=== PATIENT | male | born 1990 | race African-American/Black ===

== ENCOUNTER 2021-12-11 16:09 | Inpatient (IN) | payer OTHER ==
[2021-12-11] MEDS ORDERED: MAGNESIUM CITRATE 300 ML BOTTLE PO PRN (20:57)
[2021-12-11] MEDS ORDERED: BISMUTH SUBSALICYLATE 524 MG/30 ML PO PRN (20:57)
[2021-12-11] MEDS ORDERED: MAGNESIUM HYDROX 2400MG/30ML ORAL SUSPENSION 30 ML CUP PO PRN (20:57)
[2021-12-11] MEDS ORDERED: DICYCLOMINE HCL 10 MG CAPSULE PO PRN (20:57)
[2021-12-11] MEDS ORDERED: ACETAMINOPHEN 325 MG TABLET (FP) PO PRN ×2 (20:57)
[2021-12-11] MEDS ORDERED: P-EPHED 60MG/TRIPROLIDI 2.5MG TABLET PO PRN (20:57)
[2021-12-11] MEDS ORDERED: BENZOCAINE/MENTHOL (CHLORASEPTIC ) LOZENGE MM PRN (20:57)
[2021-12-11] MEDS ORDERED: IBUPROFEN 400 MG TABLET (FP) PO PRN (20:57)
[2021-12-11] MEDS ORDERED: NICOTINE POLACRILEX 2 MG GUM BUC PRN (20:57)
[2021-12-11] MEDS ORDERED: guaiFENesin 200 MG/10 ML 10 ML UNIT-DOSE CUPS PO PRN (20:57)
[2021-12-11] MEDS ORDERED: MAG HYDROX/AL HYDROX/SIMETH 30 ML UNIT-DOSE CUP PO PRN (20:57)
[2021-12-11] MEDS ORDERED: chlordiazePOXIDE HCL 25 MG CAPSULE PO PRN (20:57)
[2021-12-11] MEDS ORDERED: ONDANSETRON *ODT* 4 MG TABLET SL PRN (20:57)
[2021-12-11] MEDS ORDERED: IBUPROFEN 600 MG TABLET (FP) PO PRN (20:57)
[2021-12-11] MEDS ORDERED: LOPERAMIDE HCL 2 MG CAPSULE PO PRN (20:57)
[2021-12-11 21:24] VITALS: BMI 29.5
[2021-12-12] MEDS: chlordiazePOXIDE HCL 25 MG CAPSULE PO SCH ×5 (02:39→22:19)
[2021-12-12] MEDS ORDERED: chlordiazePOXIDE HCL 25 MG CAPSULE ONE ×2 (02:42→06:28)
[2021-12-12] MEDS: MELATONIN 5 MG TABLETS PO SCH ×2 (03:50→22:19)
[2021-12-12] MEDS: THIAMINE HCL 100 MG TABLET (FP) PO SCH ×2 (03:51→22:19)
[2021-12-12] MEDS: METHOCARBAMOL 500 MG TABLET PO PRN ×2 (10:23→18:29)
[2021-12-12] MEDS: PRENATAL VITAMINS W/ FOLIC ACID TABLET (FP) PO SCH (10:23)
[2021-12-12] MEDS: NICOTINE 14 MG/24 HOURS TOPICAL PATCH TD SCH (10:23)
[2021-12-12 10:27] LABS: HEMATOCRIT 42.3 % (35.4-49); HEMOGLOBIN 13.8 GM/dL (11.7-16.9); MCH 31.3 pg (25.7-33.7); MCHC 32.6 g/dl (32.0-35.9); MEAN CELL VOLUME 95.9 fl (80-96); MEAN PLT VOLUME 8.6 fl (7.5-11.1); PLATELET COUNT 242 10^3/uL (134-434); RBC 4.41 M/mm3 (4.00-5.60); RDW 13.2 % (11.9-15.9); WHITE BLOOD COUNT 6.3 K/mm3 (4.0-10.0)
[2021-12-12 10:52] LABS: ALBUMIN 3.3 g/dl (3.4-5.0); BLOOD UREA NITROGEN 4.2 mg/dL (7-18); CALCIUM 8.6 mg/dL (8.5-10.1)
[2021-12-12 10:55] LABS: CREATININE 0.6 mg/dL (0.55-1.3)
[2021-12-12 10:57] LABS: BILIRUBIN,TOTAL 0.5 mg/dL (0.2-1); TOT PROT 6.6 g/dl (6.4-8.2)
[2021-12-13] MEDS: chlordiazePOXIDE HCL 25 MG CAPSULE PO SCH ×2 (05:45→12:07)
[2021-12-13 08:45] VITALS: RESP 18
[2021-12-13 09:14] VITALS: BP 133/75; PULSE 63; TEMP 97.5
[2021-12-13] MEDS: NICOTINE 14 MG/24 HOURS TOPICAL PATCH TD SCH (12:06)
[2021-12-13] MEDS: PRENATAL VITAMINS W/ FOLIC ACID TABLET (FP) PO SCH (12:07)
[2021-12-14] MEDS ORDERED: chlordiazePOXIDE HCL 10 MG CAPSULE PO PRN
[2021-12-14] MEDS ORDERED: chlordiazePOXIDE HCL 10 MG CAPSULE PO SCH (05:00)
[2021-12-15] MEDS ORDERED: chlordiazePOXIDE HCL 10 MG CAPSULE PO SCH (05:00)
[2021-12-16] MEDS ORDERED: chlordiazePOXIDE HCL 10 MG CAPSULE PO ONE (05:00)
== END 2021-12-13 10:23 | disposition left against medical advice (07) | DRG 770 ==
LOC: YASAS 16:09 → Y6N 12-12 12:00
PROVIDERS: ADMIT Allergy & Immunology; ATTEND Surgery
PROC: HZ2ZZZZ Detoxification Services for Substance Abuse Treatment (ICD-10-PCS; principal; 2021-12-12)
DX: F10.230 Alcohol dependence with withdrawal, uncomplicated (principal); F10.282 Alcohol dependence with alcohol-induced sleep disorder; F10.280 Alcohol dependence with alcohol-induced anxiety disorder; F12.20 Cannabis dependence, uncomplicated; F17.210 Nicotine dependence, cigarettes, uncomplicated; F64.0 Transsexualism; F33.2 Major depressive disorder, recurrent severe without psychotic features; F60.3 Borderline personality disorder; K21.9 Gastro-esophageal reflux disease without esophagitis; R26.2 Difficulty in walking, not elsewhere classified; Z99.89 Dependence on other enabling machines and devices; Z62.810 Personal history of physical and sexual abuse in childhood; Z56.0 Unemployment, unspecified
CPT/HCPCS: 36415; 80053; 85027; 86780; 87811; 93005; 93010; C9803-CS; U0003; U0005

== ENCOUNTER 2022-01-07 14:06 | Inpatient (IN) | payer OTHER ==
[2022-01-07 15:15] VITALS: BMI 29.4
[2022-01-07] MEDS ORDERED: MAGNESIUM HYDROX 2400MG/30ML ORAL SUSPENSION 30 ML CUP PO PRN (15:45)
[2022-01-07] MEDS ORDERED: ONDANSETRON *ODT* 4 MG TABLET SL PRN (15:45)
[2022-01-07] MEDS ORDERED: chlordiazePOXIDE HCL 25 MG CAPSULE PO PRN (15:45)
[2022-01-07] MEDS ORDERED: LOPERAMIDE HCL 2 MG CAPSULE PO PRN (15:45)
[2022-01-07] MEDS ORDERED: BISMUTH SUBSALICYLATE 524 MG/30 ML PO PRN (15:45)
[2022-01-07] MEDS ORDERED: IBUPROFEN 400 MG TABLET (FP) PO PRN (15:45)
[2022-01-07] MEDS ORDERED: ACETAMINOPHEN 325 MG TABLET (FP) PO PRN ×2 (15:45)
[2022-01-07] MEDS ORDERED: IBUPROFEN 600 MG TABLET (FP) PO PRN (15:45)
[2022-01-07] MEDS ORDERED: MAGNESIUM CITRATE 300 ML BOTTLE PO PRN (15:45)
[2022-01-07] MEDS: hydrOXYzine PAMOATE 25 MG CAPSULE (FP) PO SCH (19:53)
[2022-01-08] MEDS: hydrOXYzine PAMOATE 25 MG CAPSULE (FP) PO SCH ×6 (00:01→23:09)
[2022-01-08] MEDS: chlordiazePOXIDE HCL 25 MG CAPSULE PO SCH ×5 (00:01→23:09)
[2022-01-08] MEDS: THIAMINE HCL 100 MG TABLET (FP) PO SCH ×2 (00:01→23:10)
[2022-01-08] MEDS: MELATONIN 5 MG TABLETS PO SCH ×2 (00:01→23:09)
[2022-01-08 10:20] LABS: HEMATOCRIT 42.6 % (35.4-49); HEMOGLOBIN 13.8 GM/dL (11.7-16.9); MCH 31.3 pg (25.7-33.7); MCHC 32.5 g/dl (32.0-35.9); MEAN CELL VOLUME 96.2 fl (80-96); MEAN PLT VOLUME 9.4 fl (7.5-11.1); PLATELET COUNT 204 10^3/uL (134-434); RBC 4.43 M/mm3 (4.00-5.60); WHITE BLOOD COUNT 4.2 K/mm3 (4.0-10.0)
[2022-01-08 10:36] LABS: CALCIUM 8.5 mg/dL (8.5-10.1)
[2022-01-08 10:37] LABS: ALBUMIN 3.2 g/dl (3.4-5.0); BLOOD UREA NITROGEN 8.5 mg/dL (7-18)
[2022-01-08 10:40] LABS: BILIRUBIN,TOTAL 0.4 mg/dL (0.2-1); CREATININE 0.7 mg/dL (0.55-1.3); TOT PROT 6.7 g/dl (6.4-8.2)
[2022-01-08] MEDS ORDERED: DICYCLOMINE HCL 10 MG CAPSULE PO ONE (10:45)
[2022-01-08] MEDS: PRENATAL VITAMINS W/ FOLIC ACID TABLET (FP) PO SCH (11:01)
[2022-01-08] MEDS: METHOCARBAMOL 500 MG TABLET PO PRN ×2 (11:01→18:24)
[2022-01-08] MEDS: BENZOCAINE/MENTHOL (CHLORASEPTIC ) LOZENGE MM PRN (11:04)
[2022-01-08 11:36] LABS: HIV INTERPRETATION NEGATIVE (NEGATIVE)
[2022-01-08] MEDS: FAMOTIDINE 20 MG TABLET PO SCH ×2 (11:37→23:09)
[2022-01-09] MEDS: hydrOXYzine PAMOATE 25 MG CAPSULE (FP) PO SCH ×5 (05:47→22:15)
[2022-01-09] MEDS: chlordiazePOXIDE HCL 25 MG CAPSULE PO SCH ×4 (05:47→22:15)
[2022-01-09] MEDS: DICYCLOMINE HCL 10 MG CAPSULE PO PRN ×2 (05:50→11:07)
[2022-01-09] MEDS: BENZOCAINE/MENTHOL (CHLORASEPTIC ) LOZENGE MM PRN (07:58)
[2022-01-09] MEDS: PRENATAL VITAMINS W/ FOLIC ACID TABLET (FP) PO SCH (10:42)
[2022-01-09] MEDS: FAMOTIDINE 20 MG TABLET PO SCH ×2 (10:42→22:15)
[2022-01-09] MEDS: METHOCARBAMOL 500 MG TABLET PO PRN ×2 (10:43→17:54)
[2022-01-09] MEDS: NICOTINE 10 MG CARTRIDGE (INHALER) IH PRN ×2 (10:45→17:55)
[2022-01-09] MEDS ORDERED: PNEUMOC 20-VAL CONJ-DIP CRM/PF 0.5 ML SYRINGE IM ONE (12:00)
[2022-01-09] MEDS: HYDROCORTISONE 1% TOPICAL CREAM 30 GM TUBE TP SCH ×2 (13:08→22:16)
[2022-01-09] MEDS: KETOCONAZOLE 2% TOPICAL CREAM 15 GM TUBE TP SCH ×2 (15:36→22:16)
[2022-01-09] MEDS: MAG HYDROX/AL HYDROX/SIMETH 30 ML UNIT-DOSE CUP PO PRN (19:46)
[2022-01-09] MEDS: THIAMINE HCL 100 MG TABLET (FP) PO SCH (22:15)
[2022-01-09] MEDS: MELATONIN 5 MG TABLETS PO SCH (22:15)
[2022-01-10] MEDS ORDERED: chlordiazePOXIDE HCL 10 MG CAPSULE PO PRN
[2022-01-10] MEDS: chlordiazePOXIDE HCL 10 MG CAPSULE PO SCH ×4 (04:46→22:34)
[2022-01-10] MEDS: BENZOCAINE/MENTHOL (CHLORASEPTIC ) LOZENGE MM PRN (04:55)
[2022-01-10] MEDS: hydrOXYzine PAMOATE 25 MG CAPSULE (FP) PO SCH ×5 (05:04→22:34)
[2022-01-10] MEDS: NICOTINE 10 MG CARTRIDGE (INHALER) IH PRN ×3 (05:05→22:50)
[2022-01-10] MEDS: MAG HYDROX/AL HYDROX/SIMETH 30 ML UNIT-DOSE CUP PO PRN ×2 (07:29→13:24)
[2022-01-10] MEDS: FAMOTIDINE 20 MG TABLET PO SCH ×2 (10:05→22:34)
[2022-01-10] MEDS: KETOCONAZOLE 2% TOPICAL CREAM 15 GM TUBE TP SCH ×2 (10:06→22:35)
[2022-01-10] MEDS: HYDROCORTISONE 1% TOPICAL CREAM 30 GM TUBE TP SCH ×2 (10:06→22:34)
[2022-01-10] MEDS: PRENATAL VITAMINS W/ FOLIC ACID TABLET (FP) PO SCH (10:07)
[2022-01-10] MEDS: METHOCARBAMOL 500 MG TABLET PO PRN (18:37)
[2022-01-10] MEDS: THIAMINE HCL 100 MG TABLET (FP) PO SCH (22:34)
[2022-01-10] MEDS: MELATONIN 5 MG TABLETS PO SCH (22:34)
[2022-01-11] MEDS: BENZOCAINE/MENTHOL (CHLORASEPTIC ) LOZENGE MM PRN ×3 (02:45→12:43)
[2022-01-11] MEDS: chlordiazePOXIDE HCL 10 MG CAPSULE PO SCH ×2 (05:44→18:05)
[2022-01-11] MEDS: hydrOXYzine PAMOATE 25 MG CAPSULE (FP) PO SCH ×4 (05:44→18:05)
[2022-01-11] MEDS: NICOTINE 10 MG CARTRIDGE (INHALER) IH PRN ×4 (07:18→18:08)
[2022-01-11] MEDS: MAG HYDROX/AL HYDROX/SIMETH 30 ML UNIT-DOSE CUP PO PRN (09:57)
[2022-01-11] MEDS: HYDROCORTISONE 1% TOPICAL CREAM 30 GM TUBE TP SCH (09:58)
[2022-01-11] MEDS: KETOCONAZOLE 2% TOPICAL CREAM 15 GM TUBE TP SCH (09:58)
[2022-01-11] MEDS: FAMOTIDINE 20 MG TABLET PO SCH (09:58)
[2022-01-11] MEDS: PRENATAL VITAMINS W/ FOLIC ACID TABLET (FP) PO SCH (09:59)
[2022-01-11 13:19] VITALS: BP 126/77; PULSE 90; RESP 18
[2022-01-11 17:17] VITALS: TEMP 7.3
[2022-01-12] MEDS ORDERED: chlordiazePOXIDE HCL 10 MG CAPSULE PO ONE (05:00)
== END 2022-01-11 19:32 | disposition other institution (70) | DRG 775 ==
LOC: YASAS 14:06 → Y6N 17:56
PROVIDERS: ADMIT Allergy & Immunology; ATTEND Surgery
PROC: HZ2ZZZZ Detoxification Services for Substance Abuse Treatment (ICD-10-PCS; principal; 2022-01-07)
DX: F10.230 Alcohol dependence with withdrawal, uncomplicated (principal); F19.10 Other psychoactive substance abuse, uncomplicated; F12.20 Cannabis dependence, uncomplicated; F17.210 Nicotine dependence, cigarettes, uncomplicated; F33.2 Major depressive disorder, recurrent severe without psychotic features; F10.280 Alcohol dependence with alcohol-induced anxiety disorder; F10.282 Alcohol dependence with alcohol-induced sleep disorder; F41.9 Anxiety disorder, unspecified; F60.3 Borderline personality disorder; F64.0 Transsexualism; F41.1 Generalized anxiety disorder; Z62.810 Personal history of physical and sexual abuse in childhood
CPT/HCPCS: 36415; 80053; 85027; 86780; 87389; 90677; C9803-CS; Q0162; U0003; U0005

== ENCOUNTER 2022-01-11 19:54 | Inpatient (IN) | payer OTHER ==
[2022-01-11 20:12] VITALS: RESP 18
[2022-01-11] MEDS ORDERED: P-EPHED 60MG/TRIPROLIDI 2.5MG TABLET PO PRN (21:18)
[2022-01-11] MEDS ORDERED: LOPERAMIDE HCL 2 MG CAPSULE PO PRN (21:18)
[2022-01-11] MEDS ORDERED: MAGNESIUM CITRATE 300 ML BOTTLE PO PRN (21:18)
[2022-01-11] MEDS ORDERED: MAGNESIUM HYDROX 2400MG/30ML ORAL SUSPENSION 30 ML CUP PO PRN (21:18)
[2022-01-11] MEDS ORDERED: guaiFENesin 200 MG/10 ML 10 ML UNIT-DOSE CUPS PO PRN (21:18)
[2022-01-11] MEDS ORDERED: BENZOCAINE/MENTHOL (CHLORASEPTIC ) LOZENGE MM PRN (21:18)
[2022-01-11] MEDS ORDERED: IBUPROFEN 400 MG TABLET (FP) PO PRN (21:18)
[2022-01-11] MEDS ORDERED: NICOTINE POLACRILEX 2 MG GUM BUC PRN (21:18)
[2022-01-11] MEDS ORDERED: ACETAMINOPHEN 325 MG TABLET (FP) PO PRN (21:18)
[2022-01-11] MEDS: THIAMINE HCL 100 MG TABLET (FP) PO SCH (21:46)
[2022-01-11] MEDS: MELATONIN 5 MG TABLETS PO SCH (21:46)
[2022-01-11] MEDS: MAG HYDROX/AL HYDROX/SIMETH 30 ML UNIT-DOSE CUP PO PRN (22:14)
[2022-01-12] MEDS: PRENATAL VITAMINS W/ FOLIC ACID TABLET (FP) PO SCH (10:22)
[2022-01-12] MEDS: NICOTINE 14 MG/24 HOURS TOPICAL PATCH TD SCH (10:24)
[2022-01-12] MEDS: MAG HYDROX/AL HYDROX/SIMETH 30 ML UNIT-DOSE CUP PO PRN ×2 (10:25→17:32)
[2022-01-12] MEDS: NICOTINE 10 MG CARTRIDGE (INHALER) IH PRN ×2 (17:32→21:38)
[2022-01-12] MEDS: hydrOXYzine PAMOATE 25 MG CAPSULE (FP) PO PRN ×2 (17:35→21:39)
[2022-01-12] MEDS: MELATONIN 5 MG TABLETS PO SCH (21:39)
[2022-01-12] MEDS: THIAMINE HCL 100 MG TABLET (FP) PO SCH (21:39)
[2022-01-13] MEDS: MAG HYDROX/AL HYDROX/SIMETH 30 ML UNIT-DOSE CUP PO PRN (03:40)
[2022-01-13] MEDS: hydrOXYzine PAMOATE 25 MG CAPSULE (FP) PO PRN ×2 (03:46→07:30)
[2022-01-13 03:59] VITALS: BP 107/65; PULSE 72; TEMP 97.3
[2022-01-13] MEDS: NICOTINE 10 MG CARTRIDGE (INHALER) IH PRN ×2 (06:33→09:15)
[2022-01-13] MEDS: NICOTINE 14 MG/24 HOURS TOPICAL PATCH TD SCH (09:14)
[2022-01-13] MEDS: PRENATAL VITAMINS W/ FOLIC ACID TABLET (FP) PO SCH (09:14)
== END 2022-01-13 09:50 | disposition left against medical advice (07) | DRG 770 ==
LOC: YASAS 19:54 → Y5N 19:56
PROVIDERS: ADMIT Allergy & Immunology; ATTEND Psychiatry & Neurology Pain Medicine
PROC: HZ42ZZZ Group Counseling for Substance Abuse Treatment, Cognitive-Behavioral (ICD-10-PCS; principal; 2022-01-11)
DX: F10.20 Alcohol dependence, uncomplicated (principal); F12.20 Cannabis dependence, uncomplicated; F17.210 Nicotine dependence, cigarettes, uncomplicated; F10.282 Alcohol dependence with alcohol-induced sleep disorder; F10.280 Alcohol dependence with alcohol-induced anxiety disorder; F19.24 Other psychoactive substance dependence with psychoactive substance-induced mood disorder; F33.2 Major depressive disorder, recurrent severe without psychotic features; F60.3 Borderline personality disorder; F64.0 Transsexualism; K21.9 Gastro-esophageal reflux disease without esophagitis; Z99.89 Dependence on other enabling machines and devices

== ENCOUNTER 2022-01-28 14:00 | Inpatient (IN) | payer OTHER ==
[2022-01-28 16:42] VITALS: BMI 28.3
[2022-01-28] MEDS ORDERED: LOPERAMIDE HCL 2 MG CAPSULE PO PRN (17:40)
[2022-01-28] MEDS ORDERED: IBUPROFEN 600 MG TABLET (FP) PO PRN (17:40)
[2022-01-28] MEDS ORDERED: ACETAMINOPHEN 325 MG TABLET (FP) PO PRN ×2 (17:40)
[2022-01-28] MEDS ORDERED: ONDANSETRON *ODT* 4 MG TABLET SL PRN (17:40)
[2022-01-28] MEDS ORDERED: DICYCLOMINE HCL 10 MG CAPSULE PO PRN (17:40)
[2022-01-28] MEDS ORDERED: MAGNESIUM CITRATE 300 ML BOTTLE PO PRN (17:40)
[2022-01-28] MEDS ORDERED: guaiFENesin 200 MG/10 ML 10 ML UNIT-DOSE CUPS PO PRN (17:40)
[2022-01-28] MEDS ORDERED: MELATONIN 5 MG TABLETS PO PRN (17:40)
[2022-01-28] MEDS ORDERED: IBUPROFEN 400 MG TABLET (FP) PO PRN (17:40)
[2022-01-28] MEDS ORDERED: BISMUTH SUBSALICYLATE 524 MG/30 ML PO PRN (17:40)
[2022-01-28] MEDS ORDERED: MAGNESIUM HYDROX 2400MG/30ML ORAL SUSPENSION 30 ML CUP PO PRN (17:40)
[2022-01-28] MEDS ORDERED: P-EPHED 60MG/TRIPROLIDI 2.5MG TABLET PO PRN (17:40)
[2022-01-28] MEDS ORDERED: hydrOXYzine PAMOATE 25 MG CAPSULE (FP) PO ONE (19:04)
[2022-01-28] MEDS: hydrOXYzine PAMOATE 25 MG CAPSULE (FP) PO PRN (19:05)
[2022-01-28] MEDS: MAG HYDROX/AL HYDROX/SIMETH 30 ML UNIT-DOSE CUP PO PRN (22:05)
[2022-01-28] MEDS ORDERED: MAG HYDROX/AL HYDROX/SIMETH 30 ML UNIT-DOSE CUP ONE (22:05)
[2022-01-29] MEDS: THIAMINE HCL 100 MG TABLET (FP) PO SCH ×2 (01:36→23:10)
[2022-01-29] MEDS ORDERED: chlordiazePOXIDE HCL 25 MG CAPSULE PO PRN (10:04)
[2022-01-29] MEDS: chlordiazePOXIDE HCL 25 MG CAPSULE PO SCH ×3 (10:43→22:21)
[2022-01-29] MEDS: BENZOCAINE/MENTHOL (CHLORASEPTIC ) LOZENGE MM PRN (10:46)
[2022-01-29] MEDS: PRENATAL VITAMINS W/ FOLIC ACID TABLET (FP) PO SCH (10:53)
[2022-01-29] MEDS ORDERED: NICOTINE POLACRILEX 4 MG GUM BUC PRN (15:06)
[2022-01-29] MEDS: NICOTINE 21 MG/24 HOURS TOPICAL PATCH TD SCH (15:41)
[2022-01-29] MEDS: MICONAZOLE NITRATE 28 GM TUBE TP SCH ×2 (15:48→22:47)
[2022-01-29] MEDS: MAG HYDROX/AL HYDROX/SIMETH 30 ML UNIT-DOSE CUP PO PRN (17:29)
[2022-01-29] MEDS: hydrOXYzine PAMOATE 25 MG CAPSULE (FP) PO PRN (22:21)
[2022-01-29] MEDS: NICOTINE 10 MG CARTRIDGE (INHALER) IH PRN (22:25)
[2022-01-30] MEDS: chlordiazePOXIDE HCL 25 MG CAPSULE PO SCH ×4 (06:09→23:06)
[2022-01-30] MEDS: BENZOCAINE/MENTHOL (CHLORASEPTIC ) LOZENGE MM PRN ×2 (06:10→10:26)
[2022-01-30] MEDS: MICONAZOLE NITRATE 28 GM TUBE TP SCH ×2 (10:21→23:29)
[2022-01-30] MEDS: PRENATAL VITAMINS W/ FOLIC ACID TABLET (FP) PO SCH (10:21)
[2022-01-30] MEDS: NICOTINE 10 MG CARTRIDGE (INHALER) IH PRN ×3 (10:21→23:09)
[2022-01-30] MEDS: hydrOXYzine PAMOATE 25 MG CAPSULE (FP) PO PRN ×3 (10:21→23:07)
[2022-01-30] MEDS: NICOTINE 21 MG/24 HOURS TOPICAL PATCH TD SCH (10:21)
[2022-01-30] MEDS: METHOCARBAMOL 500 MG TABLET PO PRN (18:53)
[2022-01-30] MEDS: THIAMINE HCL 100 MG TABLET (FP) PO SCH (23:30)
[2022-01-31] MEDS: chlordiazePOXIDE HCL 25 MG CAPSULE PO SCH ×4 (05:18→22:36)
[2022-01-31] MEDS: PRENATAL VITAMINS W/ FOLIC ACID TABLET (FP) PO SCH (10:15)
[2022-01-31] MEDS: NICOTINE 21 MG/24 HOURS TOPICAL PATCH TD SCH (10:15)
[2022-01-31] MEDS: MICONAZOLE NITRATE 28 GM TUBE TP SCH ×2 (10:15→23:58)
[2022-01-31] MEDS: MAG HYDROX/AL HYDROX/SIMETH 30 ML UNIT-DOSE CUP PO PRN (10:15)
[2022-01-31] MEDS: NICOTINE 10 MG CARTRIDGE (INHALER) IH PRN ×2 (10:18→19:01)
[2022-01-31] MEDS: hydrOXYzine PAMOATE 25 MG CAPSULE (FP) PO PRN (10:21)
[2022-01-31] MEDS: THIAMINE HCL 100 MG TABLET (FP) PO SCH (22:35)
[2022-01-31] MEDS: BENZOCAINE/MENTHOL (CHLORASEPTIC ) LOZENGE MM PRN (22:38)
[2022-01-31] MEDS: METHOCARBAMOL 500 MG TABLET PO PRN (22:38)
[2022-02-01] MEDS ORDERED: chlordiazePOXIDE HCL 10 MG CAPSULE PO PRN
[2022-02-01] MEDS: NICOTINE 10 MG CARTRIDGE (INHALER) IH PRN ×2 (05:46→18:25)
[2022-02-01] MEDS: chlordiazePOXIDE HCL 10 MG CAPSULE PO SCH ×4 (05:48→22:54)
[2022-02-01] MEDS: BENZOCAINE/MENTHOL (CHLORASEPTIC ) LOZENGE MM PRN (05:51)
[2022-02-01] MEDS: hydrOXYzine PAMOATE 25 MG CAPSULE (FP) PO PRN ×4 (05:51→22:54)
[2022-02-01] MEDS: PRENATAL VITAMINS W/ FOLIC ACID TABLET (FP) PO SCH (10:39)
[2022-02-01] MEDS: MICONAZOLE NITRATE 28 GM TUBE TP SCH ×2 (10:41→23:14)
[2022-02-01] MEDS: NICOTINE 21 MG/24 HOURS TOPICAL PATCH TD SCH (10:42)
[2022-02-01] MEDS: MAG HYDROX/AL HYDROX/SIMETH 30 ML UNIT-DOSE CUP PO PRN ×2 (10:45→18:28)
[2022-02-01] MEDS: METHOCARBAMOL 500 MG TABLET PO PRN (18:26)
[2022-02-01] MEDS: THIAMINE HCL 100 MG TABLET (FP) PO SCH (23:14)
[2022-02-02] MEDS: chlordiazePOXIDE HCL 10 MG CAPSULE PO SCH ×2 (06:14→18:07)
[2022-02-02] MEDS: BENZOCAINE/MENTHOL (CHLORASEPTIC ) LOZENGE MM PRN ×2 (06:17→18:01)
[2022-02-02] MEDS: hydrOXYzine PAMOATE 25 MG CAPSULE (FP) PO PRN ×4 (06:18→22:25)
[2022-02-02] MEDS: NICOTINE 10 MG CARTRIDGE (INHALER) IH PRN ×3 (06:18→17:59)
[2022-02-02] MEDS: MICONAZOLE NITRATE 28 GM TUBE TP SCH ×2 (10:19→22:26)
[2022-02-02] MEDS: NICOTINE 21 MG/24 HOURS TOPICAL PATCH TD SCH (10:20)
[2022-02-02] MEDS: PRENATAL VITAMINS W/ FOLIC ACID TABLET (FP) PO SCH (10:21)
[2022-02-02 17:14] VITALS: RESP 18
[2022-02-02] MEDS: THIAMINE HCL 100 MG TABLET (FP) PO SCH (22:25)
[2022-02-03] MEDS ORDERED: chlordiazePOXIDE HCL 10 MG CAPSULE PO ONE (05:00)
[2022-02-03] MEDS: BENZOCAINE/MENTHOL (CHLORASEPTIC ) LOZENGE MM PRN (07:53)
[2022-02-03 09:53] VITALS: BP 114/59; PULSE 79; TEMP 97.9
[2022-02-03] MEDS: hydrOXYzine PAMOATE 25 MG CAPSULE (FP) PO PRN (10:21)
[2022-02-03] MEDS: NICOTINE 10 MG CARTRIDGE (INHALER) IH PRN (10:21)
[2022-02-03] MEDS: NICOTINE 21 MG/24 HOURS TOPICAL PATCH TD SCH (10:22)
[2022-02-03] MEDS: PRENATAL VITAMINS W/ FOLIC ACID TABLET (FP) PO SCH (11:07)
[2022-02-03] MEDS: MICONAZOLE NITRATE 28 GM TUBE TP SCH (11:09)
== END 2022-02-03 14:12 | disposition home or self-care (01) | DRG 775 ==
LOC: YASAS 14:00 → Y6N 01-29 10:13
PROVIDERS: ADMIT Allergy & Immunology; ATTEND Surgery
PROC: HZ2ZZZZ Detoxification Services for Substance Abuse Treatment (ICD-10-PCS; principal; 2022-01-29)
DX: F10.230 Alcohol dependence with withdrawal, uncomplicated (principal); F12.20 Cannabis dependence, uncomplicated; F17.210 Nicotine dependence, cigarettes, uncomplicated; F10.280 Alcohol dependence with alcohol-induced anxiety disorder; F10.282 Alcohol dependence with alcohol-induced sleep disorder; F10.24 Alcohol dependence with alcohol-induced mood disorder; F60.3 Borderline personality disorder; F64.0 Transsexualism; Z62.810 Personal history of physical and sexual abuse in childhood; Z99.89 Dependence on other enabling machines and devices
CPT/HCPCS: 81025; C9803-CS; U0003; U0005